=== PATIENT | female | born 1995 | race African-American/Black ===

== ENCOUNTER 2017-11-26 22:30 | Emergency (ER) | payer MEDICARE, MEDICAID ==
[~2017-11-26] VITALS: Ht 167.6 cm; Wt 113.0 kg
[~2017-11-26 22:30] MED LIST: PREN-88 PO
[2017-11-26 23:07] VITALS: BP 135/99
== END 2017-11-27 04:00 | disposition left against medical advice (07) ==
LOC: ER 22:30
DX: Z53.21 Procedure and treatment not carried out due to patient leaving prior to being seen by health care provider (principal)

== ENCOUNTER 2021-06-02 19:38 | Emergency (ER) | payer MEDICARE, MEDICAID ==
[~2021-06-02] VITALS: Ht 165.1 cm; Wt 124.0 kg
[2021-06-02 20:50] LABS: CLARITY URINE CLEAR (CLEAR); COLOR URINE YELLOW (YELLOW); KETONES URINE NEGATIVE (NEGATIVE); LEUKOCYTE ESTERASE URINE 1+ (NEGATIVE); NITRITE URINE NEGATIVE (NEGATIVE); OCCULT BLOOD URINE NEGATIVE (NEGATIVE); PH URINE 5.5 (4.5-8.0); PROTEIN URINE NEGATIVE (NEGATIVE); SPECIFIC GRAVITY URINE 1.009 (1.005-1.030); UROBILINOGEN URINE 0.2 E.U./dL (0.2-1.0)
[2021-06-02] MEDS ORDERED: CEFTRIAXONE SODIUM 1 G/VIAL IM ONE (21:00)
[2021-06-02] MEDS ORDERED: DOXY100C5 MT (21:17)
[2021-06-02] MEDS ORDERED: CEPH500T MT (21:17)
[2021-06-02 21:47] VITALS: BP 139/99
== END 2021-06-02 21:48 | disposition home or self-care (01) ==
LOC: ER 19:38
DX: N30.00 Acute cystitis without hematuria (principal); Z20.2 Contact with and (suspected) exposure to infections with a predominantly sexual mode of transmission
CPT/HCPCS: 81003; 81025; 87591; 96372; 99283; J0696

== ENCOUNTER 2021-09-19 12:20 | Emergency (ER) | payer MEDICARE, MEDICAID ==
[~2021-09-19] VITALS: Ht 165.1 cm; Wt 123.0 kg
[~2021-09-19 12:20] MED LIST changes: +CEPH500T MT; +DOXY100C5 MT
[2021-09-19] MEDS ORDERED: MAGNESIUM/ALUMINUM HYDROXIDE/SIMETHICONE 30ML UDC PO STA (12:38)
[2021-09-19] MEDS ORDERED: DICYCLOMINE 10 MG/5 ML ORAL SYR PO STA (12:38)
[2021-09-19] MEDS ORDERED: ONDANSETRON 4MG ODT PO STA (12:38)
[2021-09-19 13:41] LABS: CLARITY URINE CLEAR (CLEAR); COLOR URINE YELLOW (YELLOW); KETONES URINE NEGATIVE (NEGATIVE); LEUKOCYTE ESTERASE URINE NEGATIVE (NEGATIVE); NITRITE URINE NEGATIVE (NEGATIVE); OCCULT BLOOD URINE NEGATIVE (NEGATIVE); PH URINE >=9.0 (4.5-8.0); PROTEIN URINE 1+ (NEGATIVE); SPECIFIC GRAVITY URINE 1.023 (1.005-1.030)
[2021-09-19 13:56] LABS: *AMPHETAMINES SCREEN URINE NEGATIVE (NEGATIVE); *BARBITURATES SCREEN URINE NEGATIVE (NEGATIVE); *BENZODIAZEPINES SCREEN URINE NEGATIVE (NEGATIVE); METHADONE URINE SCREEN NEGATIVE (NEGATIVE); OPIATES URINE SCREEN NEGATIVE (NEGATIVE); PHENCYCLIDINE URINE SCREEN NEGATIVE (NEGATIVE)
[2021-09-19 14:13] LABS: *COCAINE SCREEN URINE PRESUMTIVE POSITIVE (NEGATIVE); CANNABINOID URINE SCREEN PRESUMTIVE POSITIVE (NEGATIVE)
[2021-09-19 14:39] LABS: BASOPHILS % 0.8 % (0.0-2.0); EOSINOPHILS % 0.2 % (0.0-5.0); HEMATOCRIT. 36.2 % (36.0-48.0); MEAN CORPUSCULAR HEMOGLOBIN 25.4 pg (28.0-32.0); MEAN CORPUSCULAR VOLUME 76.8 fL (81.0-99.0); MEAN PLATELET VOLUME 8.9 fl (7.4-10.4); MONOCYTES % 5.3 % (2.0-8.0); NEUTROPHILS % 79.7 % (40.0-76.0); PLATELET 261 x1000/uL (130-400); RED BLOOD CELL COUNT 4.72 mill/uL (4.2-5.4); RED CELL DISTRIBUTION WIDTH 17.6 % (11.6-14.6)
[2021-09-19 14:44] LABS: CHLORIDE 105 mEq/L (98-107)
[2021-09-19 14:47] LABS: HCG SCREEN NEGATIVE
[2021-09-19 14:52] LABS: ETHANOL BLOOD < 10 mg/dL
[2021-09-19] MEDS ORDERED: ACETAMINOPHEN 325MG TABLET PO ONE (15:00)
[2021-09-19] MEDS ORDERED: ONDANSETRON 4MG ODT PO ONE (15:00)
[2021-09-19] MEDS ORDERED: OMEP40CA20 MT (15:04)
[2021-09-19] MEDS ORDERED: ONDA4TAB50 MT (15:04)
[2021-09-19 15:18] VITALS: BP 127/87
== END 2021-09-19 15:19 | disposition home or self-care (01) ==
LOC: ER 12:20
DX: R10.33 Periumbilical pain (principal); F12.10 Cannabis abuse, uncomplicated; Z79.899 Other long term (current) drug therapy
CPT/HCPCS: 36415; 80053; 80305; 80320; 81003; 81025; 83690; 84703; 85025; 99284; Q0162; G0480

== ENCOUNTER 2022-12-01 12:34 | Emergency (ER) | payer MEDICARE, MEDICAID ==
[~2022-12-01] VITALS: Ht 165.1 cm; Wt 128.0 kg
[~2022-12-01 12:34] MED LIST changes: +OMEP40CA20 MT; +ONDA4TAB50 MT
[2022-12-01 12:46] VITALS: O2SAT 98
[2022-12-01] MEDS ORDERED: KETOROLAC 30MG/ML VIAL IM ONE (13:00)
[2022-12-01] MEDS ORDERED: NAPR375T5 MT (14:09)
[2022-12-01] MEDS ORDERED: CYCL5TAB MT (14:39)
[2022-12-01 15:12] VITALS: BP 140/90; PULSE 74; RESP 18; TEMP 98.8
== END 2022-12-01 15:13 | disposition home or self-care (01) ==
LOC: ER 12:34
DX: S80.02XA Contusion of left knee, initial encounter (principal); F12.10 Cannabis abuse, uncomplicated; Z79.899 Other long term (current) drug therapy; W18.39XA Other fall on same level, initial encounter; Y93.89 Activity, other specified; Y92.89 Other specified places as the place of occurrence of the external cause; Y99.8 Other external cause status
CPT/HCPCS: 99283; 81025; 73564; 96372; J1885